=== PATIENT | female | born 1980 | race Caucasian/White ===

== ENCOUNTER 2020-01-01 20:44 | Emergency (ER) | payer BC ==
[~2020-01-01] VITALS: Ht 167.6 cm; Wt 81.6 kg
[2020-01-01 21:06] VITALS: BP_SYST 148
--- NOTE | 2020-01-01 21:10 | NUR ---
Patient triaged and placed in waiting room. VSS and patient appears in no acute distress at this time. Accompanied by self , awaiting available bed, and MD notified of need for MSE.
--- NOTE | 2020-01-02 00:50 | NUR ---
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
--- NOTE | 2020-01-02 02:00 | NUR ---
Mel koo in [facility] - 01/02/20 at 0316 by [id number] Patient to ER [facility] for evaluation.
== END 2020-01-02 00:50 | disposition left against medical advice (07) ==
LOC: SED 20:44
DX: R51 Headache (principal); R11.0 Nausea; M79.18 Myalgia, other site; Z53.21 Procedure and treatment not carried out due to patient leaving prior to being seen by health care provider